=== PATIENT | male | born 1950 | race Caucasian/White ===

== ENCOUNTER → 2022-11-25 | Outpatient (CLI) | payer MEDICARE ==
--- NOTE | 2022-11-25 22:58 | MR ---
EXAMINATION TYPE: MR pancreas wo/w con DATE OF EXAM: 11/25/2022 2:21 PM INDICATION: Patient age:Male; 72 years old; Reason for study: K86.2; PHH. Cyst on Pancreas COMPARISON: None TECHNIQUE: Multiplanar multi-sequence imaging was performed without contrast. Post contrast imaging was performed. Post IV contrast subtraction images were also submitted for review. IV Contrast: 8 cc Gadavist FINDINGS: LOWER CHEST: No gross irregularity. ABDOMEN Liver: Unremarkable. Gallbladder and Bile ducts: Unremarkable. Pancreas: There is a large cyst in the pancreatic tail measuring up to 7.0 x 7.0 cm there is some trixie ris noted along the inferior margin of the suspected pancreatic tail cyst. Motion limited postcontras t exam no obvious enhancement visualized. Spleen: Abnormal morphology to the spleen with lobulated contour. Spleen appears small in size. Adrenal glands: Unremarkable. Kidneys: No obstructive uropathy. Bilateral renal cysts Stomach and Bowel: Unremarkable as visualized. The appendix is normal. Peritoneum: No evidence of pneumoperitoneum or free fluid. Vasculature: Ectasia of the infrarenal abdominal aorta up to 2.7 cm. Musculoskeletal: The osseous structures appear intact. Lymph Nodes: No gross evidence for lymphadenopathy. Abdominal wall: Unremarkable. IMPRESSION: 1. Cystic structure near the pancreatic tail/splenic hilum. Given the abnormal appearance of the spl een thickness could represent posttraumatic splenic pseudocyst versus sequela of prior pancreatitis w ith pseudocyst formation. Short-term follow-up in 6 months is recommended for stability. Correlate wi th history of trauma history of pancreatitis. 2. 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
== END | disposition home or self-care (01) ==
LOC: RADMRIMAIN 13:25
PROVIDERS: ATTEND Internal Medicine Gastroenterology
DX: K86.2 Cyst of pancreas (principal); I77.811 Abdominal aortic ectasia
CPT/HCPCS: 74183; A9585

== ENCOUNTER → 2023-07-13 | Outpatient (CLI) | payer MEDICARE ==
--- NOTE | 2023-07-13 10:13 | MR ---
EXAMINATION TYPE: MR pancreas wo/w con DATE OF EXAM: 07/13/2023 9:26 AM CLINICAL INDICATION:Male, 72 years old with history of K86.2 CYST OF PANCREAS; PHH, Cyst on pancreas. COMPARISON: MRI pancreas 11/25/2022 TECHNIQUE: Multiplanar multi-sequence imaging was performed without contrast. Post contrast imaging was performed. Post IV contrast subtraction images were also submitted for review. IV Contrast: 7.5 cc Gadavist FINDINGS: LOWER CHEST: No gross irregularity. ABDOMEN Liver: Unremarkable. Gallbladder and Bile ducts: Unremarkable. Pancreas: Interval decrease in size in the prior large cyst in the pancreatic tail there is low T1 si gnal in the cysts that on today's exam exam. Measuring up to now no longer visualized. Spleen: Abnormal morphology to the spleen with lobulated contour. Spleen appears small in size possib ly posttraumatic/postsurgical change. Adrenal glands: Unremarkable. Kidneys: No obstructive uropathy. Bilateral renal cysts Stomach and Bowel: Unremarkable as visualized. The appendix is normal. Peritoneum: No evidence of pneumoperitoneum or free fluid. Vasculature: Ectasia of the infrarenal abdominal aorta up to 2.7 cm. Musculoskeletal: The osseous structures appear intact. Lymph Nodes: No gross evidence for lymphadenopathy. Abdominal wall: Unremarkable. IMPRESSION: 1. Resolution of prior pancreatic tail cystic lesion. No suspicious pancreatic lesion identified. 2. 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 3. No evidence for acute abdominal process. 4. 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
== END | disposition home or self-care (01) ==
LOC: RADMRIMAIN 08:16
PROVIDERS: ATTEND Internal Medicine Gastroenterology
DX: I77.811 Abdominal aortic ectasia (principal); K86.2 Cyst of pancreas; Z98.890 Other specified postprocedural states
CPT/HCPCS: 74183

== ENCOUNTER 2023-08-17 09:38 | Day surgery (SDC) | payer MEDICARE ==
[2023-08-13 11:47] VITALS: BMI 24.3
[~2023-08-17 09:38] MED LIST: DEXAMETHASONE SOD PHOSPHATE 4 MG/ML 1 ML VIAL IV ONE; HYDROmorphone 0.5 MG/0.5 ML SYRINGE IVP PRN; ONDANSETRON 4 MG/2 ML VIAL IVP ONE
[2023-08-17] MEDS: LACTATED RINGERS 1,000 ML IV SCH (10:49)
[2023-08-17 11:10] VITALS: TEMP 97.8
[2023-08-17] MEDS ORDERED: PROPOFOL 10 MG/ML 20 ML VIAL IV ONE (11:37)
[2023-08-17] MEDS ORDERED: LIDOCAINE 1% INJ 10MG/ML (20 ML MDV) ONE (11:37)
--- NOTE | 2023-08-17 11:47 | P.PCN ---
Date of Procedure: 08/17/23 Procedure(s) Performed: BRIEF HISTORY: Patient is a 9 to-year-old, pleasant, white male scheduled for an upper endoscopy as part of surveillance of Chowdary's esophagus. He had an upper endoscopy unit at [facility] and was told he has Chowdary's esophagus and biopsies were indefinite for dysplasia. His and scheduled for repeat EGD with biopsies today.. PROCEDURE PERFORMED: Esophagogastroduodenoscopy with biopsy. PREOPERATIVE DIAGNOSIS: GERD/Chowdary's esophagus. IV sedation per anesthesia. PROCEDURE: After informed consent was obtained, the patient was brought into the endoscopy unit. IV sedation was administered by Anesthesia under continuous monitoring. Initially the Olympus GIF-140 video endoscope was inserted into the mouth. Esophagus intubated without any difficulty. It was gradually advanced into the stomach and duodenum and carefully examined. The bulb and the second part of the duodenum appeared normal. The scope at this time was withdrawn to the stomach, adequately insufflated with air, and upon careful examination, mucosa of the antrum, body, cardia and the fundus appeared normal. The scope was then withdrawn into the esophagus. Small hiatal hernia. The GE junction was located at 39 cm from the incisors. There was a 3 mm tongue of Chowdary's appearing mucosa just proximal to the GE junction that was biopsied. The rest of the esophagus appeared normal. There were no erosions or ulcerations seen and the patient tolerated the procedure well. IMPRESSION: 1. 3 mm tongue of Chowdary's appearing mucosa just proximal to the GE junction status post multiple biopsies 2. Small hiatal hernia. RECOMMENDATIONS: The findings of this examination were discussed with the patient as well as his family. He was advised to follow with the biopsy results.. Continue with omeprazole 20 mg daily and follow antireflux measures. Repeat upper endoscopy based the biopsy results
[2023-08-17 12:22] VITALS: BP 139/83; PULSE 89; RESP 17
== END 2023-08-17 12:25 | disposition home or self-care (01) ==
LOC: ORWHC2ENDO 09:38
PROVIDERS: ATTEND Internal Medicine Gastroenterology
DX: K21.00 Gastro-esophageal reflux disease with esophagitis, without bleeding (principal); K22.70 Barrett's esophagus without dysplasia; K44.9 Diaphragmatic hernia without obstruction or gangrene; I10 Essential (primary) hypertension; J44.9 Chronic obstructive pulmonary disease, unspecified; F17.210 Nicotine dependence, cigarettes, uncomplicated; M19.90 Unspecified osteoarthritis, unspecified site; Z79.82 Long term (current) use of aspirin; Z79.51 Long term (current) use of inhaled steroids; Z79.899 Other long term (current) drug therapy
CPT/HCPCS: 88305; 88312; 43239; J2001; J2704

== ENCOUNTER 2023-12-31 11:20 | Day surgery (SDC) | payer MEDICARE ==
[2023-12-29 12:00] VITALS: BMI 25.3
[~2023-12-31 11:20] MED LIST changes: -DEXAMETHASONE SOD PHOSPHATE 4 MG/ML 1 ML VIAL IV ONE; -HYDROmorphone 0.5 MG/0.5 ML SYRINGE IVP PRN; +LIDOCAINE 1% (10MG/ML) FOR IV START INTRADERMA PRN; -ONDANSETRON 4 MG/2 ML VIAL IVP ONE
[2023-12-31 12:25] VITALS: RESP 16; TEMP 97.1
[2023-12-31] MEDS: IV FLUID CONTINUATION 1,000 ML IV ONE (12:37)
[2023-12-31] MEDS: LACTATED RINGERS 1,000 ML IV SCH (12:38)
[2023-12-31] MEDS ORDERED: PROPOFOL 10 MG/ML 20 ML VIAL IV ONE (13:23)
--- NOTE | 2023-12-31 13:37 | P.PCN ---
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 His last EGD by me was in September of this year which revealed short segment Chowdary's esophagus and biopsies showed high-grade dysplasia. He was referred to [facility]. He underwent repeat EGD at the end of September of this year with endoscopy mucosal resection. He scheduled for a surveillance upper endoscopy today.. PROCEDURE PERFORMED: Esophagogastroduodenoscopy with biopsy. PREOPERATIVE DIAGNOSIS: Follow-up Chowdary's esophagus with high-grade dysplasia s/p EMR in September of this year. IV sedation per anesthesia. PROCEDURE: After informed consent was obtained, the patient was brought into the endoscopy unit. IV sedation was administered by Anesthesia under continuous monitoring. Initially the Olympus GIF-140 video endoscope was inserted into the mouth. Esophagus intubated without any difficulty. It was gradually advanced into the stomach and duodenum and carefully examined. The bulb and the second part of the duodenum appeared normal. The scope at this time was withdrawn to the stomach, adequately insufflated with air, and upon careful examination, mucosa of the antrum, body, cardia and the fundus appeared normal. The scope was then withdrawn into the esophagus. Mild hiatal hernia noted the GE junction was located at 40 cm from the incisors. Just proximal to the GE junction there was some scarring of the mucosa noted at the site of previous endoscopy mucosal resection of the Chowdary's esophagus. No obvious Chowdary's esophagus identified. Biopsies were done from this area. The rest of the esophagus appeared normal. There were no erosions or ulcerations seen and the patient tolerated the procedure well. IMPRESSION: 1. Some scarring noted in the distal esophagus just above the GE junction at the site of previous Chowdary's esophagus/EMR s/p biopsy. 2. Small hiatal hernia. RECOMMENDATIONS: The findings of this examination were discussed with the patient as well as his family. He was advised to follow-up with the biopsy results. Recommended repeat surveillance upper endoscopy in 6 months..
[2023-12-31 14:12] VITALS: BP 123/73; PULSE 77
== END 2023-12-31 14:42 | disposition home or self-care (01) ==
LOC: ORWHC2ENDO 11:20
PROVIDERS: ATTEND Internal Medicine Gastroenterology
DX: K21.00 Gastro-esophageal reflux disease with esophagitis, without bleeding (principal); K44.9 Diaphragmatic hernia without obstruction or gangrene; Z87.19 Personal history of other diseases of the digestive system; I10 Essential (primary) hypertension; Z91.018 Allergy to other foods; Z79.899 Other long term (current) drug therapy; Z79.51 Long term (current) use of inhaled steroids
CPT/HCPCS: 88305; 43239; J2704

== ENCOUNTER → 2024-01-12 | Outpatient (CLI) | payer MEDICARE ==
--- NOTE | 2024-02-03 08:06 | MR ---
Patient: Stephane Arita D Ordering Physician: Unknown, Unknown ID: [id number] Phone, Pager: Phone: N/ A Pager: N/A : [phone] Age/Gender: 73Y, M Primary Location: N/A Procedure: MR PANCREAS W/WO CONT RAST Study Date: 01/12/2024 9:05:03 AM EXAMINATION TYPE: MR pancreas wo/w con DATE OF EXAM: 01/26/2024 7:14 AM CLINICAL INDICATION: Cyst of pancreas COMPARISON: 07/13/2023, 11/25/2022 TECHNIQUE: Multiplanar multi-sequence imaging was performed without contrast. Post contrast imaging was performed. Post IV contrast subtraction images were also submitted for review. IV Contrast: 7.5 Gadavist FINDINGS: LOWER CHEST: No gross irregularity. ABDOMEN Liver: Unremarkable. Gallbladder and Bile ducts: Unremarkable. Pancreas: Interval decrease in size in the prior large cyst in the pancreatic tail there is low T1 si gnal in the cysts that on today's exam exam. Measuring up to now no longer visualized. Spleen: Abnormal morphology to the spleen with lobulated contour. Spleen appears small in size possib ly posttraumatic/postsurgical change. Area of intrinsic high T1 signal possibly representing prior he morrhage proteinaceous content cyst. There is no enhancement within this lesion. Adrenal glands: Unremarkable. Kidneys: No obstructive uropathy. Bilateral renal cysts Stomach and Bowel: Unremarkable as visualized. The appendix is normal. Peritoneum: No evidence of pneumoperitoneum or free fluid. Vasculature: Ectasia of the infrarenal abdominal aorta up to 2.7 cm. Musculoskeletal: The osseous structures appear intact. Lymph Nodes: No gross evidence for lymphadenopathy. Abdominal wall: Unremarkable. IMPRESSION: 1. No evidence for tail cystic lesion seen on prior 11/25/2022. Stable morphology to the pancreatic ta il. 2. 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 3. No evidence for acute abdominal process. 4. 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
== END | disposition home or self-care (01) ==
LOC: RADMRIMAIN 09:14
PROVIDERS: ATTEND Internal Medicine Gastroenterology
DX: K86.2 Cyst of pancreas (principal)
CPT/HCPCS: 74183; A9585

== ENCOUNTER → 2024-11-17 | Outpatient (CLI) | payer MEDICARE ==
--- NOTE | 2024-11-17 10:18 | MR ---
EXAMINATION TYPE: MR pancreas wo/w con DATE OF EXAM: 11/17/2024 9:09 AM COMPARISON: Multiple MRI pancreas is dating back to 2022. CLINICAL INDICATION: Male, 73 years old with history of K86.2 cyst of pancreas; PHH, pancreatic cyst. TECHNIQUE: Multiplanar multi-sequence imaging was performed without contrast. Post contrast imaging was performed. Post IV contrast subtraction images were also submitted for review. IV Contrast: 7ml mL Gadobutrol FINDINGS: LOWER CHEST: No gross irregularity. ABDOMEN Liver: Unremarkable. Gallbladder and Bile ducts: Unremarkable. Pancreas: There remains no cyst identified within the pancreatic tail. No suspicious pancreatic lesio ns identified. No ductal dilation. Spleen: Similar abnormal morphology to the spleen with lobulated contour. Spleen appears small in siz e possibly posttraumatic/postsurgical change. Area of intrinsic high T1 signal possibly representing prior hemorrhage proteinaceous content cyst. There remains no suspicious enhancement within this lesi on. Adrenal glands: Unremarkable. Kidneys: No obstructive uropathy. Bilateral renal cysts Stomach and Bowel: Unremarkable as visualized. The appendix is normal. Peritoneum: No evidence of pneumoperitoneum or free fluid. Vasculature: Ectasia of the infrarenal abdominal aorta up to 3.0 cm. Proceed 2.7 possibly due to slic e selection. Musculoskeletal: The osseous structures appear intact. Lymph Nodes: No gross evidence for lymphadenopathy. Abdominal wall: Fat-containing umbilical hernia is small. IMPRESSION: 1. Stable exam with stable morphology to the pancreatic tail. 2. 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 3. No evidence for acute abdominal process. 4. Stable Infrarenal abdominal aortic aorta dilation up to 3.0 cm. [facility], , 11/17/2024 10:16 AM
== END | disposition home or self-care (01) ==
LOC: RADMRIMAIN 07:56
PROVIDERS: ATTEND Internal Medicine Gastroenterology
DX: K86.2 Cyst of pancreas (principal); I70.0 Atherosclerosis of aorta
CPT/HCPCS: 74183; A9585